=== PATIENT | male | born 1985 | race Two or more races ===

== ENCOUNTER 2017-01-26 10:33 | Emergency (ER) | payer MEDICAID, OTHER ==
[~2017-01-26] VITALS: Ht 180.3 cm; Wt 88.5 kg
[2017-01-26] MEDS ORDERED: KETOROLAC TROMETH 60MG/2ML VIAL IM ONE (13:00)
[2017-01-26 13:53] VITALS: BP 139/63
== END 2017-01-26 13:53 | disposition home or self-care (01) ==
LOC: ER 10:33
CPT/HCPCS: 70450